=== PATIENT | female | born 1990 | race Caucasian/White ===

== ENCOUNTER 2018-03-29 17:13 | Emergency (ER) | payer MEDICAID ==
[~2018-03-29] VITALS: Ht 162.6 cm; Wt 57.0 kg
[2018-03-29] MEDS: KETOROLAC 30MG/ML VIAL IV STA (21:52)
[2018-03-29] MEDS: SODIUM CHLORIDE 0.9% 1,000 ML IV ONE (21:52)
[2018-03-29 22:20] LABS: CHLORIDE 105 mEq/L (98-107)
[2018-03-29 22:24] LABS: ETHANOL BLOOD < 10 mg/dL
[2018-03-29 22:32] LABS: *AMPHETAMINES SCREEN URINE NEGATIVE (NEGATIVE); *BARBITURATES SCREEN URINE NEGATIVE (NEGATIVE); *BENZODIAZEPINES SCREEN URINE NEGATIVE (NEGATIVE); *COCAINE SCREEN URINE NEGATIVE (NEGATIVE)
[2018-03-29 22:33] LABS: CANNABINOID URINE SCREEN NEGATIVE (NEGATIVE); METHADONE URINE SCREEN NEGATIVE (NEGATIVE); OPIATES URINE SCREEN NEGATIVE (NEGATIVE); PHENCYCLIDINE URINE SCREEN NEGATIVE (NEGATIVE)
[2018-03-29 23:07] LABS: HCG SCREEN NEGATIVE
[2018-03-29 23:21] LABS: INR 1.1; PROTHROMBIN TIME 10.7 sec (9.1-11.1)
[2018-03-29] MEDS: ALBUTEROL (0.083%) 2.5MG/3ML NEB HHN STA (23:30)
[2018-03-29 23:46] LABS: BASOPHILS % 0.5 % (0.0-2.0); EOSINOPHILS % 0.9 % (0.0-5.0); HEMATOCRIT. 37.5 % (36.0-48.0); HEMOGLOBIN. 12.6 g/dL (12.0-16.0); LYMPHOCYTES % 38.6 % (20.0-50.0); MEAN CORPUSCULAR HEMOGLOBIN 31.2 pg (28.0-32.0); MEAN CORPUSCULAR VOLUME 93.3 fL (81.0-99.0); MEAN PLATELET VOLUME 6.9 fl (7.4-10.4); MONOCYTES % 3.7 % (2.0-8.0); NEUTROPHILS % 56.3 % (40.0-76.0); PLATELET 272 x1000/uL (130-400); RED BLOOD CELL COUNT 4.02 mill/uL (4.2-5.4); RED CELL DISTRIBUTION WIDTH 13.8 % (11.6-14.6)
[2018-03-30] MEDS ORDERED: IOHEXOL-350 100 ML BOTTLE ONE (00:13)
[2018-03-30] MEDS: DEXAMETHASONE 10 MG/ML VIAL IV ONE (01:41)
[2018-03-30 01:45] VITALS: BP 104/60
== END 2018-03-30 01:49 | disposition home or self-care (01) ==
LOC: ER 17:13 → CANBEDREQ 23:22 → ER 03-30 01:49
DX: R07.89 Other chest pain (principal); R06.00 Dyspnea, unspecified; R91.8 Other nonspecific abnormal finding of lung field; R03.0 Elevated blood-pressure reading, without diagnosis of hypertension; Z90.710 Acquired absence of both cervix and uterus; Z98.890 Other specified postprocedural states; F17.200 Nicotine dependence, unspecified, uncomplicated; Z88.0 Allergy status to penicillin; Z88.6 Allergy status to analgesic agent; Z91.040 Latex allergy status
CPT/HCPCS: 36415; 71045; 71275; 80053; 80305; 81025; 83690; 83880; 84484; 84703; 85025; 85379; 85610; 85730; 93005; 93970; 94640; 96374; 96375; 99284; G0482; J1100; J1885; J7030; Q9967; J7611

== ENCOUNTER 2018-12-16 05:28 | Emergency (ER) | payer MEDICAID, OTHER ==
[~2018-12-16] VITALS: Ht 162.6 cm; Wt 61.0 kg
[2018-12-16] MEDS ORDERED: IBUPROFEN 600MG TABLET PO ONE (06:00)
[2018-12-16 07:44] VITALS: BP 145/91
== END 2018-12-16 07:40 | disposition home or self-care (01) ==
LOC: ER 05:28
DX: S80.01XA Contusion of right knee, initial encounter (principal); W22.09XA Striking against other stationary object, initial encounter; Y93.01 Activity, walking, marching and hiking; Y92.89 Other specified places as the place of occurrence of the external cause; Z98.51 Tubal ligation status; Z88.0 Allergy status to penicillin; Z88.6 Allergy status to analgesic agent; Z90.710 Acquired absence of both cervix and uterus; Z91.040 Latex allergy status
CPT/HCPCS: 73562; 99283

== ENCOUNTER 2018-12-17 17:01 | Emergency (ER) | payer OTHER ==
[~2018-12-17] VITALS: Ht 165.1 cm; Wt 58.0 kg
[2018-12-17 17:02] VITALS: BP 116/72
== END 2018-12-17 22:48 | disposition left against medical advice (07) ==
LOC: ER 17:01
DX: M79.641 Pain in right hand (principal); Z53.21 Procedure and treatment not carried out due to patient leaving prior to being seen by health care provider